=== PATIENT | male | born 1970 | race African-American/Black ===

== ENCOUNTER 2016-04-08 09:12 | Outpatient (CLI) | payer OTHER, SELFPAY | END 2016-04-08 09:13 | disposition home or self-care (01) | LOC: MADLABBHPM 09:12 | PROVIDERS: ATTEND Family Medicine | DX: E78.2 Mixed hyperlipidemia (principal); E11.65 Type 2 diabetes mellitus with hyperglycemia ==

== ENCOUNTER 2018-11-13 18:54 | Emergency (ER) | payer BC ==
[~2018-11-13 18:54] MED LIST: Sodium Chloride 0.9% 1,000 ML BAG ONE
[2018-11-13] MEDS ORDERED: Lidocaine 1% 20 ML MDV ONE (19:12)
[2018-11-13] MEDS ORDERED: cefTRIAXone\\ROCEPHIN 1 GM VIAL ONE (19:12)
[2018-11-13] MEDS ORDERED: Prochlorperazine 10 MG/2 ML VIAL ONE (19:12)
[2018-11-13] MEDS ORDERED: Insulin Regular 300 UNITS/3 ML VIAL ONE (19:20)
[2018-11-13] MEDS ORDERED: Clindamycin/D5W 600 mg/50 ml Premix Bag ONE (19:20)
[2018-11-13] MEDS ORDERED: Sodium Chloride 0.9% 1,000 ML ONE (19:20)
[2018-11-13 19:42] LABS: #Basophils 0.1 thou/uL (0.0-0.2); #Eosinphils 0.1 thou/uL (0.0-0.7); #Lymphocytes 2.1 thou/uL (1.20-3.40); #Monocytes 0.6 thou/uL (0.11-0.59); #Neutrophils 5.6 thou/uL (1.40-6.50); %Basophils 1.2 % (0.0-1.0); %Eosinophils 0.7 % (0.0-10.0); %Lymphocytes 24.6 % (21.0-51.0); %Monocytes 7.2 % (0.0-10.0); %Neutrophils 66.2 % (42.0-75.0); Hemoglobin 14.5 g/dL (14.0-18.0); Mean Corpuscular HGB CONC 32.9 g/dL (32.0-36.0); Mean Corpuscular Hemoglobin 27.3 pg (27.0-31.0); Mean Corpuscular Volume 82.8 fL (78.0-98.0); Mean Platelet Volume 7.5 fL (7.4-10.4); Platelet Count 332 thou/uL (130-400); RBC Distribution Width 12.8 % (11.5-14.5); Red Blood Cell (RBC) Count 5.31 mill/uL (4.70-6.10); White Blood Cell (WBC) Count 8.4 thou/uL (4.8-10.8)
[2018-11-13 19:51] LABS: Base Excess-Venous -0.2 mmol/L (-2.0 to 3.0); Bicarbonate (HCO3v) 22.7 mmol/L (22.0-28.0); CO2 Tension (PvCO2) 31.9 mmHg (40.0-50.0); Calcium, Ionized 1.04 mmol/L (See Comments:); Chloride 102 mmol/L (98-107); Hemoglobin - Calc 16.6 g/dL (14.0-18.0); Potassium 3.8 mmol/L (3.5-5.1); Sodium 137 mmol/L (138-145); T. Carbon Dioxide 23.6 mmol/L (22.0-28.0); vO2 Saturation-calc 74.9 % (60.0-85.0)
[2018-11-13 19:57] LABS: ALT (SGPT) 10 U/L (8-55); AST (SGOT) 11 U/L (5-34); Alkaline Phosphatase 54 U/L (40-150); Anion Gap 25 mmol/L (10-20); BUN (Urea Nitrogen) 58 mg/dL (8.9-20.6); Bilirubin, Total 0.6 mg/dL (0.2-1.2); Calc. Creatinine Clearance 0 mL/min (70-130); Calcium 10.3 mg/dL (7.8-10.44); Carbon Dioxide 21 mmol/L (22-29); Chloride 94 mmol/L (98-107); Estimated GFR-MDRD 11; Globulin 4.4 g/dL (2.4-3.5); Glucose 235 mg/dL (70-105); Lipase 64 U/L (8-78); Magnesium 2.8 mg/dL (1.6-2.6); Potassium 3.8 mmol/L (3.5-5.1); Protein, Total 9.4 g/dL (6.0-8.3); Sodium 136 mmol/L (136-145)
[2018-11-13 20:44] LABS: Bilirubin Small (Negative); Blood, Urine Trace (Negative); Clarity Clear (Clear); Glucose, Urine (Dipstick) 500 mg/dL (Negative); Leukocyte Negative (Negative); Nitrite Negative (Negative); Protein, Urine (Dipstick) 100 mg/dL (Neg-Trace); Urobilinogen 0.2 mg/dL (Less than 2)
[2018-11-13 20:55] LABS: RBC/HPF 0-3 HPF (0-3)
[2018-11-13 20:56] LABS: Bacteria/HPF 1+ HPF (None Seen); Mucous/LPF Few LPF (<2+)
[2018-11-13] MEDS ORDERED: Dextrose 5 % And 0.9 % NaCl 1,000 ML ONE (21:38)
== END 2018-11-13 21:43 | disposition short-term general hospital (02) ==
LOC: MADERS 18:54
DX: L03.115 Cellulitis of right lower limb (principal); N17.9 Acute kidney failure, unspecified; E11.10 Type 2 diabetes mellitus with ketoacidosis without coma; E87.8 Other disorders of electrolyte and fluid balance, not elsewhere classified; I10 Essential (primary) hypertension; Z79.899 Other long term (current) drug therapy
CPT/HCPCS: 36416; 80053; 81003; 81015; 82330; 82435; 82803; 83690; 83735; 84132; 84295; 85014; 85025; 96365; 96375; J0696; J0780; J1815; J2001; J3490; J7042; J7050

== ENCOUNTER 2019-09-25 13:02 | Emergency (ER) | payer BC | END 2019-09-25 14:10 | disposition home or self-care (01) | LOC: MADERS 13:02 | DX: J02.0 Streptococcal pharyngitis (principal); I10 Essential (primary) hypertension; E11.9 Type 2 diabetes mellitus without complications; Z79.899 Other long term (current) drug therapy | CPT/HCPCS: 99282 ==

== ENCOUNTER 2019-09-27 19:34 | Emergency (ER) | payer BC ==
[2019-09-27] MEDS ORDERED: predniSONE 20 MG TAB ONE (20:27)
[2019-09-27] MEDS ORDERED: Ibuprofen 600 MG TAB ONE (20:27)
[2019-09-27] MEDS ORDERED: Acetaminophen 325 MG TAB ONE (20:31)
== END 2019-09-27 20:45 | disposition home or self-care (01) ==
LOC: MADERS 19:34
DX: J02.9 Acute pharyngitis, unspecified (principal); E11.9 Type 2 diabetes mellitus without complications; I10 Essential (primary) hypertension
CPT/HCPCS: 99282; J7512

== ENCOUNTER 2019-10-06 07:27 | Emergency (ER) | payer BC, OTHER ==
[2019-10-07 12:52] LABS: SARS-CoV-2 MS2 Positive; SARS-CoV-2 N Gene Positive; SARS-CoV-2 S Gene Positive; SARS-CoV-2 orf1ab Positive
== END 2019-10-06 08:20 | disposition home or self-care (01) ==
LOC: MADERS 07:27
DX: U07.1 COVID-19 (principal); E11.9 Type 2 diabetes mellitus without complications; I10 Essential (primary) hypertension
CPT/HCPCS: 87635; 99284; U0003

== ENCOUNTER 2022-04-11 07:07 | Outpatient (CLI) | payer OTHER, SELFPAY ==
[2022-04-11 07:46] LABS: ALT (SGPT) 17 U/L (8-55); AST (SGOT) 12 U/L (5-34); Albumin 4.4 g/dL (3.5-5.0); Alkaline Phosphatase 46 U/L (40-110); Anion Gap 15 mmol/L (10-20); BUN (Urea Nitrogen) 24 mg/dL (8.4-25.7); Bilirubin, Total 0.5 mg/dL (0.2-1.2); Calc. Creatinine Clearance 0 mL/min (70-130); Calcium 9.7 mg/dL (7.8-10.44); Carbon Dioxide 23 mmol/L (22-29); Cardiac Risk 4.2 (Less than 4.5); Chloride 105 mmol/L (98-107); Cholesterol 200 mg/dl (< 200 Desired); Estimated GFR 52; Globulin 3.3 g/dL (2.4-3.5); Glucose 349 mg/dL (70-105); HDL Cholesterol 48 mg/dL (>60 Neg Risk); LDL Cholesterol, Calculated 133 mg/dL; Potassium 4.1 mmol/L (3.5-5.1); Protein, Total 7.7 g/dL (6.0-8.3); Sodium 139 mmol/L (136-145); Triglycerides 97 mg/dL (Less than 150)
[2022-04-11 12:39] LABS: Creatinine, Urine 116.07 mg/dL (63-166); Microalbumin Urine 18.2 mg/dL (0.5-50.0); Microalbumin/Creat Ratio 156.8 mg/g (Less than 30)
[2022-04-11 12:53] LABS: Hemoglobin A1c 12.7 % (4.0-6.0)
== END 2022-04-11 07:08 | disposition home or self-care (01) ==
LOC: MADLAB 07:07
PROVIDERS: ATTEND Family Medicine
DX: I12.9 Hypertensive chronic kidney disease with stage 1 through stage 4 chronic kidney disease, or unspecified chronic kidney disease (principal); E11.22 Type 2 diabetes mellitus with diabetic chronic kidney disease; N18.2 Chronic kidney disease, stage 2 (mild); E11.65 Type 2 diabetes mellitus with hyperglycemia; E78.2 Mixed hyperlipidemia
CPT/HCPCS: 36415; 80053; 80061; 82043; 83036; 84443